=== PATIENT | male | born 1980 | race Caucasian/White ===

== ENCOUNTER 2021-02-03 00:19 | Emergency (ER) | payer OTHER ==
[2021-02-03] MEDS ORDERED: Sodium Chloride 0.9% 1000 ML 1,000 ML ONE (00:55)
[2021-02-03] MEDS ORDERED: Adacel Vial IM ONE (00:56)
[2021-02-03 01:08] LABS: Absolute Neutrophil Ct (ANC) 9.64 (1.4-6.9); BASOPHIL % 0.3 % (0.0-0.4); Basophil (Absolute #) 0.03 (0-0.4); Eosinophil % 0.7 % (0.00-5.0); Eosinophil (Absolute #) 0.08 (0-0.5); Hematocrit 53.3 % (42-50); Hemoglobin 18.1 gm/dl (12.5-18.0); Lymphocyte (Absolute #) 1.11 (1.0-4.6); Lymphocytes % 9.4 % (24.0-44.0); Mean Cell Volume 98.2 fl (78-100); Mean Corpuscular Hemoglobin 33.3 pg (26-32); Monocyte (Absolute #) 0.93 (0.0-1.3); Monocytes % 7.9 % (0.0-12.0); Neutrophil % 81.7 % (36.0-66.0); Platelet Count 217 K/mm3 (150-450); Red Blood Count 5.43 M/mm3 (4.1-5.6); Red Cell Distribution Width 14.2 % (11.5-14.0); White Blood Count 11.8 K/mm3 (4.0-10.5)
[2021-02-03] MEDS: Sodium Chloride 0.9% 1000 ML 1,000 ML IV STA (01:08)
[2021-02-03] MEDS: Adacel Vial IM ONE (01:08)
[2021-02-03 01:11] LABS: Appearance SLIGHTLY CLOUDY (CLEAR); Bilirubin NEGATIVE (NEGATIVE); Blood LARGE Ery/ul (0-5); Glucose NEGATIVE (NEGATIVE); Ketones NEGATIVE (NEGATIVE); Leukocyte Esterase NEGATIVE (NEGATIVE); Mucus SLIGHT /HPF (NEGATIVE); Nitrite NEGATIVE (NEGATIVE); Protein,Urine Dip >=500 (Negative); Specific Gravity 1.013 (1.005-1.025); Urobilinogen NEGATIVE mg/dL (0-1)
[2021-02-03 01:17] LABS: ALBUMIN 4.5 g/dL (3.5-5.0); ALKALINE PHOSPHATASE 79 U/L (38-126); ANION GAP 17.1 MEQ/L (5-15); BLOOD UREA NITROGEN 12 mg/dL (9-20); CHLORIDE 99 mmol/L (98-107); Calcium 8.9 mg/dL (8.4-10.2); Carbon Dioxide 24 mmol/L (22-30); Creatinine 1 1.04 mg/dL (0.66-1.25); EST GLOMERULAR FILTRATION RATE > 60.0 ML/MIN; ETHYL ALCOHOL 196 mg/dL (0-10); Glucose 126 mg/dL (74-106); Potassium 3.4 mmol/L (3.5-5.1); SGOT/AST 42 U/L (17-59); SGPT/ALT 45 U/L (0-50); SODIUM 137 mmol/L (137-145); Total Protein 7.5 g/dL (6.3-8.2)
[2021-02-03 01:24] LABS: Amphetamine,Urine NEGATIVE (NEGATIVE); Barbiturate,Urine NEGATIVE (NEGATIVE); Benzodiazepine,Urine NEGATIVE (NEGATIVE); Cocaine,Urine NEGATIVE (NEGATIVE); Methadone,Urine NEGATIVE (NEGATIVE); Opiate,Urine NEGATIVE (NEGATIVE); PCP,Urine NEGATIVE (NEGATIVE); THC,Urine POSITIVE (NEGATIVE)
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
[2021-02-03 02:02] VITALS: BP 136/95; PULSE 108
[2021-02-03 06:59] VITALS: O2SAT 100
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
== END 2021-02-03 02:21 | disposition home or self-care (01) ==
LOC: ED 00:19
DX: S00.83XA Contusion of other part of head, initial encounter (principal); Y04.0XXA Assault by unarmed brawl or fight, initial encounter; Y93.89 Activity, other specified; Y92.9 Unspecified place or not applicable; F10.10 Alcohol abuse, uncomplicated; F19.10 Other psychoactive substance abuse, uncomplicated; Z02.89 Encounter for other administrative examinations
CPT/HCPCS: 36000; 36415; 70450; 70480; 80053; 80307; 81001; 85025; 87086; 90471; 96360; 99284; G0480; 90715

== ENCOUNTER 2023-04-26 21:44 | Emergency (ER) | payer MEDICARE ==
[2023-04-26 22:02] VITALS: TEMP 97.7
[2023-04-26] MEDS ORDERED: Adacel Vial IM ONE ×2 (22:08→22:11)
[2023-04-26] MEDS ORDERED: TORAdol 30 mg Injection IM ONE (22:09)
[2023-04-26] MEDS ORDERED: Rocephin 1000 MG INJ IM ONE (22:11)
[2023-04-26] MEDS ORDERED: TORAdol 30 mg Injection ONE (22:14)
[2023-04-26] MEDS ORDERED: Rocephin 1000 MG INJ ONE (22:14)
[2023-04-26] MEDS ORDERED: XYLOCAINE 1% HCL 20 ML MDV IJ ONE (22:54)
--- NOTE | 2023-04-26 23:12 | ERPHSYRPT ---
- History of Present Illness Time Seen by Provider: 04/26/23 21:58 Source: patient Patient Subjective Stated Complaint: pt states I was walking in the yard and stepped on something Triage Nursing Assessment: pt came into the er via wheelchair; pt transfer self to cot; axo x4; c/o laceration to left great toe; laceration measures 1 cm x 1 cm; no bleeding present at time of assessment; foot was placed in sterile to soak with hibiclens; good cap refill to LLE; strong left pedal pulse; skin PDW; no respiratory distress present; vitals wnl Physician History: Patient is a 43-year-old male presents to our ED for evaluation and treatment of a laceration to his left foot. Patient states he was walking barefoot in his yard. Patient lacerated his foot on an unknown object. Injury occurred just prior to arrival. Tetanus is not up-to-date. Patient stated there was a significant amount of bleeding. However upon arrival bleeding had stopped. Pain is localized. Patient describes pain as a burning sensation. No blunt trauma. No fever. Patient denies foreign body sensation of the involved area. No other injuries reported. Patient voices no other complaints or concerns at this time. Portions of this note were created with voice recognition technology. There may be grammatical, spelling, punctuation or sound alike errors Timing/Duration: today Severity: moderate Modifying Factors: Improves With: nothing Associated Symptoms: denies symptoms Allergies/Adverse Reactions: erythromycin base Allergy (Verified 04/26/23 21:51) Hx Tetanus, Diphtheria Vaccination/Date Given: No (unsure) Hx Influenza Vaccination/Date Given: No Hx Pneumococcal Vaccination/Date Given: No Travel Risk - International Travel Have you traveled outside of the country in past 3 weeks: No - Coronavirus Screening Are you exhibiting any of the following symptoms?: No Close contact with a COVID-19 positive Pt in past 14-21 Days: No - Vaccine Status Have you recieved a Covid-19 vaccination: No - Review of Systems Constitutional: No Symptoms, No Fever, No Chills Eyes: No Symptoms Ears, Nose, & Throat: No Symptoms Respiratory: No Symptoms, No Cough, No Dyspnea Cardiac: No Symptoms, No Chest Pain, No Edema, No Syncope Abdominal/Gastrointestinal: No Symptoms, No Abdominal Pain, No Nausea, No Vomiting, No Diarrhea Genitourinary Symptoms: No Symptoms, No Dysuria Musculoskeletal: No Symptoms, No Back Pain, No Neck Pain Skin: No Symptoms, No Rash Neurological: No Symptoms, No Dizziness, No Focal Weakness, No Sensory Changes Psychological: No Symptoms Endocrine: No Symptoms Hematologic/Lymphatic: No Symptoms Immunological/Allergic: No Symptoms All Other Systems: Reviewed and Negative - Past Medical History Pertinent Past Medical History: Yes Neurological History: No Pertinent History Cardiac History: Hypertension Respiratory History: Asthma Endocrine Medical History: No Pertinent History Musculoskeletal History: Fractures Psycho-Social History: Anxiety, Depression Other Medical History: psoriatic arthritis. psoriasis - Past Surgical History Past Surgical History: Yes Musculoskeletal: Orthopedic Surgery Other Surgical History: bilat hip replacements - Social History Smoking Status: Former smoker Exposure to second hand smoke: No Drug Use: none Patient Lives Alone: No - Nursing Vital Signs Nursing Vital Signs: Initial Vital Signs Temperature 97.7 F 04/26/23 21:52 Pulse Rate 56 L 04/26/23 21:52 Respiratory Rate 22 04/26/23 21:52 Blood Pressure 90/64 04/26/23 21:52 O2 Sat by Pulse Oximetry 96 04/26/23 21:52 Pain Scale Pain Intensity 6 - Physical Exam General Appearance: no apparent distress, alert Eye Exam: PERRL/EOMI, eyes nml inspection Ears, Nose, Throat Exam: normal ENT inspection, moist mucous membranes Neck Exam: normal inspection, full range of motion Respiratory Exam: normal breath sounds, airway intact, No respiratory distress Cardiovascular Exam: regular rate/rhythm, normal peripheral pulses, capillary refill <2 sec Gastrointestinal/Abdomen Exam: soft, normal bowel sounds, No tenderness, No mass Back Exam: normal inspection, normal range of motion, No CVA tenderness, No vertebral tenderness Extremity Exam: normal inspection, normal range of motion, pelvis stable, other (There is a 1 x 1 cm laceration medial aspect left great toe just adjacent to the first MTP. Compartments are soft. Cap refill less than 2 seconds. PT DP pulse palpable. There is a small flap with diminished blood flow.) Neurologic Exam: alert, oriented x 3, cooperative, normal mood/affect, sensation nml, No motor deficits Skin Exam: normal color, warm, dry, No rash Lymphatic Exam: No adenopathy SpO2 Interpretation: normal SpO2: 96 O2 Delivery: Room Air Procedures - Laceration/Wound Repair Left Foot Time of Procedure: 23:21 Wound Location: Left (Left first MTP) Wound Length (cm): 1 Wound's Depth, Shape: superficial Wound Explored: clean Irrigated: Yes Hibiclens Prep: Yes Anesthesia: 1% Lidocaine Volume Anesthetic (ccs): 4 Wound Debrided: No debridement indicated Wound Repaired With: sutures Suture Size/Type: 5-0, nylon Number of Sutures: 4 Layer Closure?: No Sterile Dressing Applied?: Yes Splint Applied?: No Sling Applied?: No Progress: 04/26/23 23:22 Bulky dressing applied. Patient neurovascular intact distally for during and after procedure. No intra or postprocedural complications. Cap refill less than 2 seconds post procedure. - Course Nursing assessment & vital signs reviewed: Yes - Radiology Exams Foot X-ray Interpretation: Interpreted by me (No fracture or dislocation. There is a soft tissue defect on the medial aspect of the left first MTP.) Ordered Tests: Active Orders 24 hr Category Date Time Status FOOT (MINIMUM 3 VIEWS) Stat Exams 04/26/23 22:10 Taken Medication Summary Discontinued Medications Generic Name Dose Route Start Last Admin Trade Name Angela PRN Reason Stop Dose Admin Ceftriaxone Sodium 1,000 mg 04/26/23 22:11 04/26/23 22:22 Ceftriaxone Sodium 1000 Mg Inj Vial IM 04/26/23 22:12 1,000 mg STAT ONE Administration Ceftriaxone Sodium Confirm 04/26/23 22:14 Ceftriaxone Sodium 1000 Mg Inj Vial Administered 04/26/23 22:15 Dose 1,000 mg .ROUTE .STK-MED ONE Diphtheria/Tetanus/Acell Pertussis 0.5 ml 04/26/23 22:08 04/26/23 22:12 Tdap --Diph,Pertuss(Acell),Tet Vac/Pf 0.5 Ml Vial IM 04/26/23 22:09 0.5 ml .ONCE ONE Administration Diphtheria/Tetanus/Acell Pertussis Confirm 04/26/23 22:11 Tdap --Diph,Pertuss(Acell),Tet Vac/Pf 0.5 Ml Vial Administered 04/26/23 22:12 Dose 0.5 ml IM .STK-MED ONE Ketorolac Tromethamine 30 mg 04/26/23 22:09 04/26/23 22:22 Ketorolac Tromethamine 30 Mg/Ml Inj IM 04/26/23 22:10 30 mg STAT ONE Administration Ketorolac Tromethamine Confirm 04/26/23 22:14 Ketorolac Tromethamine 30 Mg/Ml Inj Administered 04/26/23 22:15 Dose 30 mg .ROUTE .STK-MED ONE Lidocaine HCl 5 ml 04/26/23 22:54 04/26/23 22:59 Lidocaine Hcl 1% 20 Ml Mdv 20 Ml Ml IJ 04/26/23 22:55 5 ml STAT ONE Administration - Progress Progress: improved Progress Note: Patient is a 43-year-old male presents to our ED for evaluation and treatment of laceration to the soft tissue just medial to the first MTP. Physical exam reveals a 1 x 1 cm laceration forming a small flap. The flap has diminished blood flow. Tendon function intact at the involved digit. The involved digit and extremity are both neurovascular intact distally. Compartments are soft. Cap refill less than 2 seconds. X-ray reveals a soft tissue defect. Otherwise no fracture dislocations. Tetanus updated using Adacel injection. Patient received an IM dose of ceftriaxone. Toradol given for pain control. Local anesthesia using approximately 4 cc 1% lidocaine no epi administered for anesthesia prior to suture repair. Laceration was repaired using 4 simple interrupted sutures. Suture material was 5-0 nylon. Patient tolerated procedure well. No procedural complications. Patient neurovascular intact b efore during and after procedure. Patient tolerated procedure well. Patient discharged home. Patient given bilateral axillary crutches. Patient advised that sutures are to be removed in 1 week. Patient referred to wound care clinic, [facility] for follow-up. Plan of care discussed with patient. He agrees to follow-up with his primary care doctor/wound clinic within 48 hours for reevaluation. He voices no other complaints or concerns at this time. Portions of this note were created with voice recognition technology. There may be grammatical, spelling, punctuation or sound alike errors Complexity of problems addressed as low acute uncomplicated No critical care time Complexity of data reviewed and analyzed is moderate. X-ray ordered reviewed and analyzed by Dr. Smith. No fracture or dislocation. Soft tissue defect observed on the x-ray. No foreign body observed. Visit complication and or risk of morbidity/mortality patient management is moderate. Patient received the prescription for Keflex and Toradol. Patient given a referral to wound care clinic. Patient received bilateral axillary crutches. Patient to remain nonweightbearing until advised otherwise by his primary care doctor/wound care physician Patient reassessed. Patient resting comfortably. Wound dressed with bulky dressing. Vital stable. Time spent to discharge patient is approximately 15 mi nutes. Plan of care established for shared decision making. No social determinants of health present to impede follow-up. Patient states pain is essentially 0 at rest. He states he is ready for discharge. He agrees to follow-up within 48 hours as discussed. He voices no other complaints or concerns at this time. Portions of this note were created with voice recognition technology. There may be grammatical, spelling, punctuation or sound alike errors 04/26/23 23:23 Counseled pt/family regarding: diagnosis, need for follow-up, rad results - Departure Departure Disposition: Home Clinical Impression: Foot laceration Condition: Stable Critical Care Time: No Referrals: PAKO JAMES [Primary Care Provider] - Follow up/PCP as directed LINENA NASCIMENTO NP [Nurse Practioner] - Follow up/PCP as directed Additional Instructions: Discharge/Care Plan DON CASILLAS was seen on 04/26/23 in the Emergency Room. The patient was counseled regarding Diagnosis,Lab results, Imaging studies, need for follow up and when to return to the Emergency Room. Prescriptions given: Discharge Note I have spoken with the patient and/or caregivers. I have explained the patient's condition, diagnosis and treatment plan based on the information available to me at this time. I have answered the patient's and/or caregiver's questions and addressed any concerns. The patient and/or caregivers have as good understanding of the patient's diagnosis, condition and treatment plan as can be expected at this point. The vital signs have been stable. The patient's condition is stable and appropriate for discharge from the emergency department. The patient will pursue further outpatient evaluation with the primary care physician or other designated or consulting physician as outlined in the discharge instructions. The patient and/or caregivers are agreeable to this plan of care and follow-up instructions have been explained in detail. The patient and/or caregivers have received these instruction. The patient/and or caregivers are aware that any significant change in condition or worsening of symptoms should prompt an immediate return to this or the closest emergency department or call 911. Prescriptions: Cephalexin Mh 500 mg [Keflex 500 mg] 500 mg PO QID 7 Days #28 cap Ketorolac Trometh 10 mg Tab [TORAdol 10 MG TABLET] 10 mg PO TID 5 Days #15 tablet
[2023-04-26 23:15] VITALS: RESP 17
[2023-04-26 23:26] VITALS: BP 105/78; PULSE 58
[2023-04-26 23:31] VITALS: O2SAT 96
--- NOTE | 2023-04-27 08:24 | XRAY ---
Indication: Foreign body. Comparison: None 3 nonweightbearing views right foot negative for radiopaque foreign body. Medial great toe demonstrates tiny soft tissue laceration. Small plantar heel spur. No other bony, articular, or soft tissue abnormalities.
== END 2023-04-26 23:25 | disposition home or self-care (01) ==
LOC: ED 21:44
DX: S91.312A Laceration without foreign body, left foot, initial encounter (principal); W22.8XXA Striking against or struck by other objects, initial encounter; Y93.01 Activity, walking, marching and hiking; Y92.007 Garden or yard of unspecified non-institutional (private) residence as the place of occurrence of the external cause; I10 Essential (primary) hypertension; Z28.310 Unvaccinated for COVID-19; Z23 Encounter for immunization
CPT/HCPCS: 12001; 73630; 90471; 90715; 96372; 99284; J0696; J1885